=== PATIENT | female | born 1975 | race Caucasian/White ===

== ENCOUNTER 2022-05-28 10:02 | Emergency (ER) | payer OTHER, SELFPAY ==
[2022-05-28] VITALS (26 sets, daily range): BP systolic 112–139; BP diastolic 54–83; PULSE 51–81; RESP 11–25; TEMP 36.6; O2SAT 93–100
--- NOTE | ~2022-05-28 | XR_ITS ---
EXAMINATION: XR chest 2V DATE: 05/28/2022 10:34 INDICATION: Generalized chest pain and shortness of breath TECHNIQUE: Frontal and lateral views of the chest are obtained COMPARISON: None available FINDINGS: The lungs are free of acute opacities. No pleural effusion or pneumothorax. The cardiomedia stinal silhouette is normal. There is mild thoracic and moderate lower cervical spondylosis. IMPRESSION: 1. No acute cardiopulmonary abnormality. Reviewed, dictated and finalized at location B.
--- NOTE | 2022-05-28 10:13 | ECG_ITS ---
Measurements Intervals [place] Rate: 75 P: 34 AL: 149 QRS: 55 QRSD: 87 T: 13 QT: 399 QTc: 448 Interpretive Statements SINUS RHYTHM BASELINE WANDER- V4-V6 NORMAL ECG NO PREVIOUS ECG AVAILABLE FOR COMPARISON Electronically Signed On 05-28-2022 12:05:34 CDT by Brett Lay D.O.
[2022-05-28 10:31] LABS: Basophils Absolute Auto 0.1 K/mm3 (0.0-0.1); Basophils Percent Auto 0.7 % (0.2-1.2); Eosinophils Absolute Auto 0.1 K/mm3 (0-0.3); Eosinophils Percent Auto 1.9 % (0-4.4); Hematocrit 41.7 % (37.0-47.0); Immature Granulocyte Absolute 0.01 K/mm3 (0.00-0.031); Immature Granulocyte Percent A 0.1 % (0-0.5); Lymphocytes Absolute Auto 1.83 K/mm3 (0.9-3.2); Lymphocytes Percent Auto 26.5 % (18.3-44.2); Mean Corpuscular HGB Conc 33.6 g/dl (32-36); Mean Corpuscular Volume 89.3 fl (80-100); Mean Platelet Volume 11.2 fl (7.4-10.4); Monocytes Absolute Auto 0.7 K/mm3 (0.1-0.6); Monocytes Percent Auto 9.6 % (2.6-8.5); Neutrophils Absolute Auto 4.2 K/mm3 (1.3-6.7); Neutrophils Percent Auto 61.2 % (45.5-73.1); Platelet Count Result 239 k/mm3 (150-375); Red Blood Count 4.67 M/mm3 (4.2-5.4); Red Cell Distribution Width 12.5 % (11.5-14.5); White Blood Count 6.9 K/mm3 (4.5-10.0)
[2022-05-28 10:40] LABS: INR 1.1; Prothrombin Time 13.4 Seconds (11.1-14.7)
[2022-05-28 10:41] LABS: Alanine Aminotransferase 20 U/L (6-35); Albumin Level 4.4 g/dL (3.5-5.1); Alkaline Phosphatase 62 U/L (38-126); Anion Gap 13 mmol/L (8-16); Aspartate Amino Transferase 26 U/L (14-36); Blood Urea Nitrogen 16 mg/dL (7-17); Calcium 8.9 mg/dL (8.4-10.2); Carbon Dioxide 22 mmol/L (22-30); Chloride 103 mmol/L (98-107); Estimated CRCL calculation 66 ml/min; Estimated Glomerular Filt Rate > 60; Glucose 116 mg/dL (65-110); Lipase 58 U/L (23-300); Partial Thromboplastin Time 28.7 SECONDS (22.3-36.8); Sodium 138 mmol/L (137-145)
[2022-05-28 10:51] LABS: Troponin I < 0.012 ng/mL (0.000-0.034)
--- NOTE | 2022-05-28 12:34 | PC.NURSE ---
ERP at bedside for assessment.
--- NOTE | 2022-05-28 12:57 | ED.GENADULT ---
HPI - General Adult General Chief complaint: Chest Pain Stated complaint: chest pain Time Seen by Provider: 05/28/22 10:08 History of Present Illness HPI narrative: 46-year-old female presents for evaluation of chest tightness and anterior chest wall pain x30 days. There are no aggravating or alleviating factors. Patient does admit that she works out 5 days a week which includes running and the exertion does not trigger any of the symptoms. She is otherwise healthy and takes no medications. Related Data Home Medications Medication Instructions Recorded Confirmed No Home Medications 05/28/22 05/28/22 Allergies Allergy/AdvReac Type Severity Reaction Status Date / Time No Known Allergies Allergy Unverified 05/28/22 10:11 Review of Systems Review of Systems: CONSTITUTIONAL: Denies fever, chills, or sweats. EYES: Denies visual changes, redness, or discharge. ENT: Denies rhinorrhea, congestion, sore throat, or otalgia. CARDIOVASCULAR: Denies chest pain, palpitations, or edema. RESPIRATORY: Denies cough or dyspnea. GASTROINTESTINAL: Denies abdominal pain, nausea, vomiting, or diarrhea. GENITOURINARY: Denies dysuria or hematuria. SKIN: Denies rash or itching. MUSCULOSKELETAL: Denies back pain, joint pain, or myalgia. NEUROLOGIC: Denies headache, numbness, or weakness. PSYCHIATRIC: Denies anxiety or depression. Exam Narrative: GENERAL: Well-appearing, well-nourished, and in no acute distress. HEAD: Normocephalic, atraumatic. EYES: PERRLA and EOMI. ENT: Nares clear, no rhinorrhea or epistaxis. Mucous membranes moist. NECK: Supple. CHEST: Clear to auscultation. No respiratory distress. HEART: Regular rate and rhythm. No murmur heard. Normal peripheral pulses. ABDOMEN: Soft, nontender, nondistended, normal active bowel sounds. EXTREMITIES: Normal range of motion. No edema. SKIN: Warm, dry, no rash. NEURO: No focal deficits. Alert and oriented x3. PSYCH: Normal mood and affect. Course Vital Signs Vital signs: Vital Signs Temperature 97.9 F 05/28/22 10:10 Pulse Rate 70 05/28/22 10:10 Respiratory Rate 14 05/28/22 10:10 Blood Pressure 139/83 05/28/22 10:10 Pulse Oximetry 99 05/28/22 10:10 Oxygen Delivery Room Air 05/28/22 10:10 Temperature 97.9 F 05/28/22 10:10 Pulse Rate 54 L 05/28/22 14:02 Respiratory Rate 18 05/28/22 14:02 Blood Pressure 112/69 05/28/22 14:02 Pulse Oximetry 100 05/28/22 14:02 Oxygen Delivery Room Air 05/28/22 10:13 Medical Decision Making Vital Signs Vital Signs: Vital Signs Temperature 97.9 F 05/28/22 10:10 Pulse Rate 70 05/28/22 10:10 Respiratory Rate 14 05/28/22 10:10 Blood Pressure 139/83 05/28/22 10:10 Pulse Oximetry 99 05/28/22 10:10 Oxygen Delivery Room Air 05/28/22 10:10 Temperature 97.9 F 05/28/22 10:10 Pulse Rate 54 L 05/28/22 14:02 Respiratory Rate 18 05/28/22 14:02 Blood Pressure 112/69 05/28/22 14:02 Pulse Oximetry 100 05/28/22 14:02 Oxygen Delivery Room Air 05/28/22 10:13 Lab Data Result diagrams: 05/28/22 10:23 05/28/22 10:23 Labs: Lab Results 05/28/22 05/28/22 05/28/22 Range/Units 10:23 10:23 10:23 WBC 6.9 (4.5-10.0) K/mm3 RBC 4.67 (4.2-5.4) M/mm3 Hgb 14.0 (12.0-15.0) g/dL Hct 41.7 (37.0-47.0) % MCV 89.3 (80-100) fl MCH 30.0 (26-34) pg MCHC 33.6 (32-36) g/dl RDW 12.5 (11.5-14.5) % Plt Count 239 (150-375) k/mm3 MPV 11.2 H (7.4-10.4) fl Immature Gran % (Auto) 0.1 (0-0.5) % Neut % (Auto) 61.2 (45.5-73.1) % Lymph % (Auto) 26.5 (18.3-44.2) % [place] % (Auto) 9.6 H (2.6-8.5) % Eos % (Auto) 1.9 (0-4.4) % Baso % (Auto) 0.7 (0.2-1.2) % Lymph # (Auto) 1.83 (0.9-3.2) K/mm3 [place] # (Auto) 0.7 H (0.1-0.6) K/mm3 Eos # (Auto) 0.1 (0-0.3) K/mm3 Baso # (Auto) 0.1 (0.0-0.1) K/mm3 Abs Immat Gran (auto) 0.01 (0.00-0.031) K/mm3 Absolute Neuts (auto) 4.2
[2022-05-28 13:06] LABS: Troponin I < 0.012 ng/mL (0.000-0.034)
[2022-05-28 13:25] LABS: Troponin I < 0.012 ng/mL (0.000-0.034)
== END 2022-05-28 14:28 | disposition home or self-care (01) ==
PROVIDERS: Emergency Provider Emergency Medicine; PCP Physician Assistant
DX: M94.0 Chondrocostal junction syndrome [Tietze] (principal)
CPT/HCPCS: 36415; 71046; 80053; 83690; 84484; 85025; 85610; 85730; 93005; 99284